=== PATIENT | female | born 2000 | race Caucasian/White ===

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

== ENCOUNTER 2022-01-06 | Emergency (ER) | payer BC | END 2022-01-06 18:38 | disposition home or self-care (01) | CPT/HCPCS: 99283 ==

== ENCOUNTER 2022-10-17 21:32 | Emergency (ER) | payer BC | END 2022-10-17 23:05 | disposition home or self-care (01) | LOC: NAV ERS 21:32 | DX: N90.7 Vulvar cyst (principal); E11.9 Type 2 diabetes mellitus without complications; E66.9 Obesity, unspecified; I10 Essential (primary) hypertension; Z87.891 Personal history of nicotine dependence | CPT/HCPCS: 99283 ==